=== PATIENT | male | born 1980 | race Hispanic/Latino ===

== ENCOUNTER 2020-05-27 20:35 | Emergency (ER) | payer OTHER, SELFPAY ==
[2020-05-28 04:20] LABS: SARS-CoV-2 PCR by NAA Not Detected (NotDetected)
== END 2020-05-27 21:32 | disposition home or self-care (01) ==
LOC: ERS 20:35
DX: R42 Dizziness and giddiness (principal); R53.81 Other malaise; R43.9 Unspecified disturbances of smell and taste; E11.9 Type 2 diabetes mellitus without complications; I10 Essential (primary) hypertension; Z20.822 Contact with and (suspected) exposure to COVID-19; Z79.899 Other long term (current) drug therapy; Z79.84 Long term (current) use of oral hypoglycemic drugs
CPT/HCPCS: 87635; 99284; U0003; U0005

== ENCOUNTER 2022-04-02 06:07 | Emergency (ER) | payer SELFPAY | END 2022-04-02 06:51 | disposition home or self-care (01) | LOC: ERS 06:07 | DX: K08.89 Other specified disorders of teeth and supporting structures (principal); E11.9 Type 2 diabetes mellitus without complications; I10 Essential (primary) hypertension; Z79.84 Long term (current) use of oral hypoglycemic drugs; Z79.899 Other long term (current) drug therapy | CPT/HCPCS: 99282 ==

== ENCOUNTER 2022-12-30 16:55 | Emergency (ER) | payer SELFPAY | END 2022-12-30 17:16 | disposition home or self-care (01) | LOC: ERS 16:55 | DX: U07.1 COVID-19 (principal); I10 Essential (primary) hypertension; E11.9 Type 2 diabetes mellitus without complications | CPT/HCPCS: 99283 ==

== ENCOUNTER 2023-03-08 16:20 | Emergency (ER) | payer SELFPAY | END 2023-03-08 17:21 | disposition home or self-care (01) | LOC: ERS 16:20 | DX: R07.89 Other chest pain (principal); R07.81 Pleurodynia; E11.9 Type 2 diabetes mellitus without complications; I10 Essential (primary) hypertension | CPT/HCPCS: 71045; 93005 ==

== ENCOUNTER 2023-03-19 07:18 | Emergency (ER) | payer SELFPAY | END 2023-03-19 07:49 | disposition home or self-care (01) | LOC: ERS 07:18 | DX: S29.011A Strain of muscle and tendon of front wall of thorax, initial encounter (principal); E11.9 Type 2 diabetes mellitus without complications; I10 Essential (primary) hypertension; X50.1XXA Overexertion from prolonged static or awkward postures, initial encounter; Y99.0 Civilian activity done for income or pay; Z79.899 Other long term (current) drug therapy | CPT/HCPCS: 99283 ==

== ENCOUNTER 2024-02-02 06:06 | Emergency (ER) | payer SELFPAY | END 2024-02-02 06:17 | disposition home or self-care (01) | LOC: ERS 06:06 | DX: S01.552A Open bite of oral cavity, initial encounter (principal); E11.9 Type 2 diabetes mellitus without complications; I10 Essential (primary) hypertension; W50.3XXA Accidental bite by another person, initial encounter | CPT/HCPCS: 99282 ==

== ENCOUNTER 2024-02-10 13:51 | Emergency (ER) | payer SELFPAY | END 2024-02-10 14:53 | disposition home or self-care (01) | LOC: ERS 13:51 | DX: B34.9 Viral infection, unspecified (principal); I10 Essential (primary) hypertension; E11.9 Type 2 diabetes mellitus without complications; F90.9 Attention-deficit hyperactivity disorder, unspecified type; Z75.8 Other problems related to medical facilities and other health care | CPT/HCPCS: 87081; 87428; 87430; 99283 ==

== ENCOUNTER 2025-03-06 22:58 | Emergency (ER) | payer SELFPAY ==
[2025-03-07 00:02] LABS: CAUTI Indications for Culture Acute Hematuria; Glucose, Urine (Dipstick) Normal (Negative); Leukocyte Negative Leu/uL (Negative); Protein, Urine (Dipstick) Negative (Neg-Trace); Specific Gravity, Urine 1.004 (1.002-1.036)
[2025-03-07 00:03] LABS: Bacteria/HPF 1+ HPF (None Seen)
[2025-03-07 00:05] LABS: Urine Culture Reflex No No
== END 2025-03-07 01:02 | disposition home or self-care (01) ==
LOC: ERS 22:58
DX: R31.9 Hematuria, unspecified (principal); I10 Essential (primary) hypertension; E11.9 Type 2 diabetes mellitus without complications; Z79.84 Long term (current) use of oral hypoglycemic drugs; Z79.899 Other long term (current) drug therapy
CPT/HCPCS: 81001; 99283